=== PATIENT | male | born 1980 ===

== ENCOUNTER 2018-08-27 06:33 | Inpatient (IN) ==
[~2018-08-27 06:33] MED LIST: ALVIMOPAN 12 MG CAPSULE ONE; ALVIMOPAN 12 MG CAPSULE PO SCH; FAMOTIDINE 20 MG TABLET ONE; FAMOTIDINE 20 MG TABLET PO ONE; cefTRIAXone 1,000 MG VIAL ONE; cefTRIAXone 1,000 MG in SYRINGE 1 EACH IV ONE
[2018-08-27] MEDS: LACTATED RINGERS 1,000 ML IV SCH ×3 (07:14→11:16)
[2018-08-27] MEDS ORDERED: INDOCYANINE GREEN 25 MG VIAL IV ONE (08:55)
[2018-08-27] MEDS ORDERED: GLUCAGON 1 MG VIAL IM PRN (11:17)
[2018-08-27] MEDS ORDERED: DEXTROSE 50% 25 GM/50 ML VIAL IV PRN (11:17)
[2018-08-27] MEDS ORDERED: ONDANSETRON 4 MG/2 ML VIAL IV PRN ×2 (11:17→11:44)
[2018-08-27] MEDS ORDERED: diphenhydrAMINE 50 MG/1 ML VIAL IV PRN (11:17)
[2018-08-27 11:20] LABS: Apearance,Urine CLEAR (Clear); Bilirubin,Urine Negative (Negative); Blood, Urine Negative (Negative); Glucose,Urine (UA) 50 mg/dL (Negative); Ketones,Urine Negative (Negative); Mucus,Urine Occasional /LPF (Occasional); Nitrite,Urine Negative (Negative); Protein,Urine Negative; RBC,Urine <1 /HPF (0-4); Urine Color Yellow (Yellow); WBC,Urine <1 /HPF (0-6)
[2018-08-27] MEDS ORDERED: MEPERIDINE 25 MG/1 ML VIAL ONE (11:34)
[2018-08-27] MEDS ORDERED: PROPOFOL 200 MG/20 ML VIAL IV ONE (11:41)
[2018-08-27] MEDS ORDERED: GLYCOPYRROLATE 0.4 MG/2 ML VIAL ONE (11:42)
[2018-08-27] MEDS ORDERED: ONDANSETRON 4 MG/2 ML VIAL ONE (11:42)
[2018-08-27] MEDS ORDERED: MIDAZOLAM 2 MG/2 ML VIAL ONE (11:42)
[2018-08-27] MEDS ORDERED: DESFLURANE 1 UNIT/15 MINUTE INH ONE (11:42)
[2018-08-27] MEDS ORDERED: ACETAMINOPHEN 1,000 MG/100 ML VIAL IV ONE (11:42)
[2018-08-27] MEDS ORDERED: NEOSTIGMINE 10 MG/10 ML VIAL ONE (11:43)
[2018-08-27] MEDS ORDERED: ROCURONIUM 100 MG/10 ML VIAL IV ONE ×2 (11:43)
[2018-08-27] MEDS ORDERED: PHENYLEPHRINE 1 MG/10 ML SYRINGE IV ONE (11:43)
[2018-08-27] MEDS ORDERED: LACTATED RINGERS 2,000 ML IV ONE (11:43)
[2018-08-27] MEDS ORDERED: MEPERIDINE 25 MG/1 ML VIAL IV PRN (11:44)
[2018-08-27] MEDS: HYDROmorphone 2 MG/1 ML VIAL IV PRN ×2 (11:45→11:55)
[2018-08-27] MEDS ORDERED: HYDROmorphone 2 MG/1 ML VIAL ONE (11:46)
[2018-08-27] MEDS ORDERED: HYDROmorphone PCA 30 MG/30 ML SYRINGE IV ONE (12:12)
[2018-08-27] MEDS: HYDROmorphone PCA 30 MG/30 ML SYRINGE IV SCH (12:15)
[2018-08-27] MEDS: SODIUM CHLORIDE 0.9% 1,000 ML IV SCH ×2 (12:56→23:00)
[2018-08-27] MEDS: INSULIN LISPRO 100 UNIT/ML SUBCUT SCH ×2 (16:53→21:31)
[2018-08-28] MEDS: INSULIN LISPRO 100 UNIT/ML SUBCUT SCH ×6 (01:38→20:18)
[2018-08-28 05:11] LABS: Basophils % 0.3 % (0.0-0.8); Eosinophils # 0.1 10*3/uL (0.0-0.87); Eosinophils % 0.8 % (0.00-10.9); Hematocrit 36.4 VOL% (42.0-52.0); Hemoglobin 11.4 GM/DL (14.0-18.0); Immature Granulocytes % 0.4 %; Immature Granulocytes Absolute 0.04 #; Mean Corpuscular HGB Conc 31.3 GM/DL (32-36); Mean Corpuscular Hemoglobin 32 PG (27-34); Mean Corpuscular Volume 101.7 FL (87-102); Mean Platelet Volume 11.2 FL (9.6-12.0); Monocytes # 0.9 10*3/uL (0.11-0.8); Monocytes % 9.3 % (1.7-12.7); Neutrophils # 6.9 10*3/uL (1.4-7.4); Neutrophils % 69.2 % (38.7-73.9); Platelet Count 194 T/CUMM (130-400); Red Blood Count 3.58 MC/CUMM (3.8-5.5); Red Cell Distribution Width 13.3 % (9.3-17.3)
[2018-08-28 05:25] LABS: Calcium 8.5 MG/DL (8.5-10.1); Osmolality,Calculated 279.4 MOS/KG (273-304); Potassium 4.1 MMOL/L (3.5-5.1)
[2018-08-28] MEDS: SODIUM CHLORIDE 0.9% 1,000 ML IV SCH (08:10)
[2018-08-28] MEDS: PANTOPRAZOLE 40 MG TABLET PO SCH (08:10)
[2018-08-28] MEDS: sitaGLIPtin 100 MG TABLET PO SCH (08:11)
[2018-08-28] MEDS: HYDROmorphone PCA 30 MG/30 ML SYRINGE IV SCH (11:55)
[2018-08-28] MEDS ORDERED: oxyCODONE/ACETAMINOPHEN 5-325 MG TABLET PO PRN ×2 (11:57→12:02)
[2018-08-28] MEDS ORDERED: INSULIN DETEMIR 100 UNIT/ML SUBCUT SCH (17:00)
[2018-08-29] MEDS: INSULIN LISPRO 100 UNIT/ML SUBCUT SCH ×3 (01:50→08:29)
[2018-08-29 08:31] VITALS: BP 139/84
[2018-08-29] MEDS: PANTOPRAZOLE 40 MG TABLET PO SCH (08:52)
[2018-08-29] MEDS: sitaGLIPtin 100 MG TABLET PO SCH (08:52)
[2018-08-29] MEDS ORDERED: INSULIN GLARGINE 100 UNIT/ML SUBCUT SCH (17:00)
== END 2018-08-29 12:03 | disposition home or self-care (01) | DRG 658 ==
LOC: N.OR 06:33 → N.SDSINP 06:34 → N.5E 09:06
PROVIDERS: ADMIT Urology; ATTEND Urology